=== PATIENT | male | born 1985 | race Two or more races ===

== ENCOUNTER 2017-09-05 23:44 | Emergency (ER) | payer MEDICAID ==
[~2017-09-05] VITALS: Ht 185.4 cm; Wt 54.9 kg
[2017-09-05 23:54] VITALS: Ht 185.4 cm; Wt 54.9 kg
[2017-09-06 01:25] LABS: BASOPHIL % 0.8 % (0-2); PLATELET COUNT 260 x10^3mcL (130-400); RED CELL DISTRIBUTION WIDTH 11.8 % (11.5-14.5)
[2017-09-06 01:37] LABS: CALCIUM 8.4 mg/dL (8.5-10.1); CARBON DIOXIDE 27.1 mmol/L (21-32); CHLORIDE SERUM 107 mmol/L (98-107); CREATININE SERUM 0.8 mg/dL (0.7-1.3); GFR1 > 60 mL/min; GLUCOSE SERUM 95 mg/dL (74-106); POTASSIUM SERUM 3.7 mmol/L (3.5-5.1); SODIUM SERUM 141 mmol/L (136-145)
[2017-09-06 01:39] LABS: ALBUMIN 3.6 g/dL (3.4-5.0); ALKALINE PHOSPHATASE 70 U/L (46-116); ALT/SGPT 28 U/L (16-63); AST/SGOT 27 U/L (15-37); BILIRUBIN TOTAL 0.61 mg/dL (0.20-1.00); LIPASE 114 IU/L (73-393); TOTAL PROTEIN, SERUM 7.1 g/dL (6.4-8.2)
[2017-09-06 02:18] VITALS: BP 98/55
== END 2017-09-06 02:18 | disposition home or self-care (01) ==
LOC: ED 23:44
PROVIDERS: Emergency Medicine
DX: R11.2 Nausea with vomiting, unspecified (principal); J02.9 Acute pharyngitis, unspecified; R00.2 Palpitations; R42 Dizziness and giddiness
CPT/HCPCS: 36415; Q0162

== ENCOUNTER 2017-09-06 20:01 | Emergency (ER) | payer MEDICAID ==
[~2017-09-06] VITALS: Ht 182.9 cm; Wt 51.7 kg
[2017-09-06 20:12] VITALS: BP 105/72; Ht 182.9 cm; Wt 51.7 kg
== END 2017-09-06 20:49 | disposition left against medical advice (07) ==
LOC: ED 20:01
DX: R11.2 Nausea with vomiting, unspecified (principal)

== ENCOUNTER 2017-09-16 00:57 | Emergency (ER) | payer MEDICAID ==
[~2017-09-16] VITALS: Ht 175.3 cm; Wt 54.4 kg
[2017-09-16 01:04] VITALS: Ht 175.3 cm; Wt 54.4 kg
[2017-09-16 02:14] LABS: BASOPHIL % 0.9 % (0-2); PLATELET COUNT 271 x10^3mcL (130-400)
[2017-09-16 02:15] LABS: RED CELL DISTRIBUTION WIDTH 10.9 % (11.5-14.5)
[2017-09-16 02:23] LABS: CARBON DIOXIDE 29.1 mmol/L (21-32); CHLORIDE SERUM 106 mmol/L (98-107); CREATININE SERUM 0.9 mg/dL (0.7-1.3); GFR1 > 60 mL/min; GLUCOSE SERUM 88 mg/dL (74-106); POTASSIUM SERUM 3.8 mmol/L (3.5-5.1); SODIUM SERUM 141 mmol/L (136-145)
[2017-09-16 03:41] VITALS: BP 119/79
== END 2017-09-16 03:41 | disposition home or self-care (01) ==
LOC: ED 00:57
PROVIDERS: Emergency Medicine
DX: F41.9 Anxiety disorder, unspecified (principal); R11.0 Nausea; R10.10 Upper abdominal pain, unspecified; R51 Headache
CPT/HCPCS: 36415